=== PATIENT | male | born 1990 | race Caucasian/White ===

== ENCOUNTER 2022-01-30 13:55 | Emergency (ER) | payer OTHER, SELFPAY ==
[2022-01-30 14:14] VITALS: BP 127/69; PULSE 77; RESP 18; TEMP 36.8; O2SAT 100
--- NOTE | 2022-01-30 15:06 | ED.SKABFB ---
HPI - Skin/Abscess/Foreign Bdy General Chief complaint: Skin/Abscess/Foreign Body Stated complaint: Facial Lacerations Time Seen by Provider: 01/30/22 14:49 Source: patient Mode of arrival: ambulatory Limitations: no limitations History of Present Illness HPI narrative: Patient presents today complaining of a laceration below his left eye that was sustained last night at 10:00 p.m.. He was intoxicated, tripped and fell and struck his left face against a doorknob. Denies falling or loss of consciousness. He has not washed his face or clean the wound. He is up-to-date on his tetanus vaccine. States he does have a headache that he rates 4/10. He has not tried any [id number] treatment prior to arrival. Related Data Home Medications Medication Instructions Recorded Confirmed sertraline 100 mg tablet 100 mg PO DAILY 01/30/22 01/30/22 Allergies Allergy/AdvReac Type Severity Reaction Status Date / Time No Known Allergies Allergy Verified 01/30/22 14:08 Review of Systems Review of Systems: CONSTITUTIONAL: Denies body aches, fever, chills, or sweats. EYES: Denies visual changes, redness, or discharge. ENT: Denies rhinorrhea, congestion, sore throat, or otalgia. CARDIOVASCULAR: Denies chest pain, palpitations, or edema. RESPIRATORY: Denies cough or dyspnea. GASTROINTESTINAL: Denies abdominal pain, nausea, vomiting, or diarrhea. GENITOURINARY: Denies dysuria or hematuria. SKIN: Denies rash, itching. + left face laceration MUSCULOSKELETAL: Denies back pain, joint pain, or myalgia. NEUROLOGIC: Denies numbness, tingling, or weakness.+ Headache PSYCH: Denies depression or anxiety. PMFSH Comments At time of signature, I have reviewed and agree with nursing past medical, surgical, social and family history unless otherwise noted. Please see nursing chart for further information. There is no relevant family history pertinent to the presenting complaint Exam Narrative: GENERAL: Well-appearing, well-nourished, and in no acute distress. HEAD: Normocephalic, atraumatic. EYES: EOMI. PERRL. No redness or drainage. Conjunctivae normal. Ecchymosis and mild edema below the left eye with a 0.5 cm x 2 mm superficial skin avulsion ENT: Mucous membranes pink and moist. Tooth #9 chipped. NECK: Normal AROM. CHEST: No respiratory distress. EXTREMITIES: Normal range of motion. No edema. SKIN: Warm, dry, no rash. Capillary refill normal. Normal skin turgor. NEURO: No focal deficits. Alert and oriented x3. Gait steady. PSYCH: Normal affect. No signs of depression or anxiety. Course Course Level of Care: Express Care Visit Vital Signs Vital signs: Vital Signs Temperature 98.2 F 01/30/22 14:14 Pulse Rate 77 01/30/22 14:14 Respiratory Rate 18 01/30/22 14:14 Blood Pressure 127/69 01/30/22 14:14 Pulse Oximetry 100 01/30/22 14:14 Oxygen Delivery Room Air 01/30/22 14:14 Temperature 98.2 F 01/30/22 14:14 Pulse Rate 77 01/30/22 14:14 Respiratory Rate 18 01/30/22 14:14 Blood Pressure 127/69 01/30/22 14:14 Pulse Oximetry 100 01/30/22 14:14 Oxygen Delivery Room Air 01/30/22 14:14 Reviewed. Pt has been instructed to follow up with his PCP regarding his elevated blood pressure today. MDM - Skin/Abscess/Foreign Bdy Differential Diagnosis Differential diagnosis: Likely other (laceration, skin avulsion, contusion) Critical Care Time Critical Care Time Critical Care Time: No Discharge Plan Discharge Clinical Impression: Avulsion of skin of face Qualifiers: Encounter type: initial encounter Qualified Code(s): S01.80XA - Unspecified open wound of other part of head, initial encounter Patient Disposition: Home, Self-Care Condition: Stable Instructions: Antibiotic Form, Skin Avulsion (ED) Additional Instructions: Your wound has been cleaned. Please continue to clean with soap and water daily and apply Neosporin. Take the Bactrim as prescribed until gone. Veda
== END 2022-01-30 15:10 | disposition home or self-care (01) ==
PROVIDERS: Emergency Provider Nurse Practitioner
DX: S01.80XA Unspecified open wound of other part of head, initial encounter (principal); W01.118A Fall on same level from slipping, tripping and stumbling with subsequent striking against other sharp object, initial encounter
CPT/HCPCS: 99203; G0463